=== PATIENT | female | born 1930 | race Caucasian/White ===

== ENCOUNTER 2016-12-19 08:56 | Outpatient (CLI) | payer MEDICARE, OTHER ==
[2016-12-19 13:02] LABS: BASOPHILS % (AUTO) 0.5 %; EOSINOPHILS # (AUTO) 0.1 10^3/uL (0.0-0.7); HCT - HEMATOCRIT 44.2 % (37.0-47.0); HGB - HEMOGLOBIN 14.8 g/dL (12.0-16.0); LYMPHOCYTES # (AUTO) 2.3 10^3/uL (1.5-3.5); LYMPHOCYTES % (AUTO) 31.8 %; MEAN CORPUSCULAR HEMOGLOBIN 28.8 pg (27.0-31.0); MEAN CORPUSCULAR HGB CONC 33.6 g/dL (32.0-36.0); MEAN CORPUSCULAR VOLUME 85.7 fL (81.0-99.0); MEAN PLATELET VOLUME 9.5 fL (7.9-10.8); MONOCYTES # (AUTO) 0.8 10^3/uL (0.0-1.0); MONOCYTES % (AUTO) 10.6 %; NEUTROPHILS % (AUTO) 55.1 %; NUCLEATED RED BLOOD CELLS AUTO 0.1 /100WBC; RED BLOOD COUNT 5.15 10^6/uL (4.20-5.40); RED CELL DISTRIBUTION WIDTH 13.7 % (12.0-15.0); UNCORRECTED WHITE BLOOD COUNT 7.2 x10^3/uL; WHITE BLOOD COUNT 7.2 x10^3/uL (4.8-10.8)
[2016-12-19 13:39] LABS: ALBUMIN/GLOBULIN RATIO 1.3 (1.0-2.2); BILIRUBIN,TOTAL 0.9 mg/dL (0.2-1.0); BUN - BLOOD UREA NITROGEN 23 mg/dL (6-20); CALCIUM 9.6 mg/dL (8.5-10.3); CARBON DIOXIDE - CO2 28 mmol/L (21-32); CHLORIDE 108 mmol/L (101-111); CHOL/HDL RATIO 3.7 (<4.4); CHOLESTEROL 159 mg/dL; CREATININE 1.3 mg/dL (0.4-1.0); GFR - MDRD 39 (>89); GLUCOSE 103 mg/dL (70-100); HDL CHOLESTEROL 43 mg/dL; LDL/HDL RATIO 1.8 (<4.4); POTASSIUM 4.7 mmol/L (3.5-5.0); SODIUM 142 mmol/L (135-145); TOTAL PROTEIN 7.6 g/dL (6.7-8.2); TRIGLYCERIDES 192 mg/dL; VLDL CHOLESTEROL 38 mg/dL
== END 2016-12-19 08:57 | disposition home or self-care (01) ==
LOC: LAB.N 08:56
PROVIDERS: ATTEND Family Medicine
DX: N28.9 Disorder of kidney and ureter, unspecified (principal)
CPT/HCPCS: 36415; 80053; 80061; 85025

== ENCOUNTER 2017-07-24 09:10 | Outpatient (CLI) | payer MEDICARE, OTHER ==
[2017-07-24 12:29] LABS: BASOPHILS # (AUTO) 0.1 10^3/uL (0.0-0.1); BASOPHILS % (AUTO) 0.8 %; EOSINOPHILS # (AUTO) 0.2 10^3/uL (0.0-0.7); EOSINOPHILS % (AUTO) 2.8 %; LYMPHOCYTES # (AUTO) 2.4 10^3/uL (1.5-3.5); LYMPHOCYTES % (AUTO) 33.5 %; MEAN CORPUSCULAR HEMOGLOBIN 28.7 pg (27.0-31.0); MEAN CORPUSCULAR HGB CONC 33.5 g/dL (32.0-36.0); MEAN CORPUSCULAR VOLUME 85.6 fL (81.0-99.0); MEAN PLATELET VOLUME 9.5 fL (7.9-10.8); MONOCYTES # (AUTO) 0.6 10^3/uL (0.0-1.0); MONOCYTES % (AUTO) 8.7 %; NEUTROPHILS # (AUTO) 3.9 10^3/uL (1.5-6.6); NEUTROPHILS % (AUTO) 54.2 %; PLT - PLATELET COUNT 182 10^3/uL (130-450); RED BLOOD COUNT 5.23 10^6/uL (4.20-5.40); RED CELL DISTRIBUTION WIDTH 13.7 % (12.0-15.0); WHITE BLOOD COUNT 7.2 x10^3/uL (4.8-10.8)
[2017-07-24 13:09] LABS: ALBUMIN 4.4 g/dL (3.2-5.5); ALBUMIN/GLOBULIN RATIO 1.4 (1.0-2.2); ALKALINE PHOSPHATASE 80 IU/L (42-121); ALT ALANINE AMINOTRANSFERASE 24 IU/L (10-60); AST ASPARTATE AMINOTRANSFERASE 22 IU/L (10-42); BILIRUBIN,TOTAL 0.7 mg/dL (0.2-1.0); BUN - BLOOD UREA NITROGEN 23 mg/dL (6-20); CALCIUM 9.3 mg/dL (8.5-10.3); CARBON DIOXIDE - CO2 25 mmol/L (21-32); CHLORIDE 109 mmol/L (101-111); CHOL/HDL RATIO 5.9 (<4.4); CHOLESTEROL 259 mg/dL; CREATININE 1.3 mg/dL (0.4-1.0); GFR - MDRD 39 (>89); GLUCOSE 106 mg/dL (70-100); HDL CHOLESTEROL 44 mg/dL; LDL CHOLESTEROL,CALCULATED 155 mg/dL; LDL/HDL RATIO 3.5 (<4.4); SODIUM 139 mmol/L (135-145); TOTAL PROTEIN 7.5 g/dL (6.7-8.2); VLDL CHOLESTEROL 60 mg/dL
== END 2017-07-24 09:11 | disposition home or self-care (01) ==
LOC: LAB.N 09:10
PROVIDERS: ATTEND Family Medicine
DX: E78.2 Mixed hyperlipidemia (principal); I10 Essential (primary) hypertension; I25.110 Atherosclerotic heart disease of native coronary artery with unstable angina pectoris
CPT/HCPCS: 36415; 80053; 80061; 85025

== ENCOUNTER 2017-07-30 14:09 | Outpatient (CLI) | payer MEDICARE, OTHER ==
--- NOTE | 2017-07-30 19:51 | Ultrasound Report ---
DATE OF SERVICE: 07/30/2017 LEFT BREAST ULTRASOUND: 07/30/2017 CLINICAL INDICATION: Palpable abnormalities medial and lateral left breast. TECHNIQUE: Real-time scanning was performed with insurance service representative static images obtained. Ultrasound of the palpable abnormalities identified by the patient was performed. Unremarkable parenchymal lobules are seen at the 9 o'clock and 3 o'clock positions of the left breast. No discrete solid or cystic lesion is identified. No sonographically suspicious findings are seen. IMPRESSION: Negative examination. RECOMMENDATIONS: Routine annual screening unless otherwise clinically indicated. BIRADS category 1 negative. TD: 07/30/2017 20:49
--- NOTE | 2017-07-30 19:51 | Mammography Report ---
DATE OF SERVICE: 07/30/2017 DIGITAL DIAGNOSTIC BILATERAL MAMMOGRAM: 07/30/2017 CLINICAL INDICATION: Palpable abnormalities left breast. TECHNIQUE: Bilateral CC and MLO views, left true lateral view. Markers were placed at the sites of palpable abnormalities identified by the patient at the 9 o'clock and 3 o'clock positions of the left breast. COMPARISON: 05/16/2009, 09/22/2008. The breasts demonstrate scattered fibroglandular densities bilaterally. Postoperative changes in the right breast are stable. Coarse, typically benign calcifications are present. No suspicious masses, clustered microcalcifications, or regions of architectural distortion are identified. Specifically, no mammographic abnormality is appreciated at either of the sites of palpable abnormalities identified by the patient. Please also refer to left breast ultrasound of the same day. IMPRESSION: Benign findings. RECOMMENDATIONS: Routine annual screening unless otherwise clinically indicated. BIRADS category 2 benign findings. STANDARD QUALIFYING STATEMENTS 1. This examination was reviewed with the aid of Computed-Aided Detection (CAD). 2. A negative or benign imaging report should not delay biopsy if clinically suspicious findings are present. Consider surgical consultation if warranted. More than 5% of cancers are not identified by imaging. 3. Dense breasts may obscure an underlying neoplasm. TD: 07/30/2017 20:49
== END 2017-07-30 14:10 | disposition home or self-care (01) ==
LOC: DI 14:09
PROVIDERS: ATTEND Family Medicine
DX: N63.22 Unspecified lump in the left breast, upper inner quadrant (principal)
CPT/HCPCS: 76642; 77066

== ENCOUNTER 2018-03-23 14:05 | Emergency (ER) | payer MEDICARE, OTHER ==
[2018-03-23 14:45] VITALS: BP 157/80
== END 2018-03-23 16:01 | disposition left against medical advice (07) ==
LOC: ED 14:05
DX: Z53.21 Procedure and treatment not carried out due to patient leaving prior to being seen by health care provider (principal)

== ENCOUNTER 2018-03-24 09:08 | Inpatient (IN) | payer MEDICARE, OTHER ==
[2018-03-24 10:06] LABS: BILIRUBIN,URINE NEGATIVE (NEGATIVE); GLUCOSE, URINE (UA) NEGATIVE (NEGATIVE); KETONES,URINE (UA) NEGATIVE (NEGATIVE); LEUKOCYTE ESTERASE, URINE NEGATIVE (NEGATIVE); NITRITE,URINE NEGATIVE (NEGATIVE); OCCULT BLOOD,URINE NEGATIVE (NEGATIVE); PH,URINE 5.5 PH (5.0-7.5); PROTEIN,URINE NEGATIVE (NEGATIVE); UROBILINOGEN,URINE 0.2 (NORMAL) E.U./dL (NORMAL)
[2018-03-24 10:07] LABS: CLARITY,URINE HAZY (CLEAR)
[2018-03-24 10:08] LABS: BASOPHILS # (AUTO) 0.1 10^3/uL (0.0-0.1); BASOPHILS % (AUTO) 0.6 %; EOSINOPHILS % (AUTO) 0.2 %; HGB - HEMOGLOBIN 14.6 g/dL (12.0-16.0); LYMPHOCYTES % (AUTO) 12.1 %; MEAN CORPUSCULAR HEMOGLOBIN 28.9 pg (27.0-31.0); MEAN CORPUSCULAR HGB CONC 34.3 g/dL (32.0-36.0); MEAN CORPUSCULAR VOLUME 84.2 fL (81.0-99.0); MEAN PLATELET VOLUME 9.4 fL (7.9-10.8); MONOCYTES # (AUTO) 0.9 10^3/uL (0.0-1.0); MONOCYTES % (AUTO) 5.6 %; NEUTROPHILS # (AUTO) 13.6 10^3/uL (1.5-6.6); NEUTROPHILS % (AUTO) 81.5 %; PLT - PLATELET COUNT 181 10^3/uL (130-450); RED BLOOD COUNT 5.07 10^6/uL (4.20-5.40); WHITE BLOOD COUNT 16.7 x10^3/uL (4.8-10.8)
--- NOTE | 2018-03-24 10:13 | ED Physician Documentation ---
PD HPI ABD PAIN - Stated complaint Stated Complaint: ABD PX - Chief complaint Chief Complaint: Abd Pain - History obtained from History obtained from: Patient - History of Present Illness Timing - onset: How many days ago (2-3) Timing - duration: Days (2-3) Timing - details: Gradual onset, Still present Quality: Cramping, Aching, Pain Location: RLQ, Suprapubic Improved by: No: Vomiting, BM (has had some loose stools.) Worsened by: Eating Associated symptoms: Nausea, Diarrhea. No: Fever, Vomiting, Melena, Dysuria Review of Systems Constitutional: reports: Chills, Myalgias. denies: Fever Nose: denies: Rhinorrhea / runny nose, Congestion Throat: denies: Sore throat Respiratory: denies: Cough GI: reports: Abdominal Pain, Nausea, Diarrhea (loose for 1-2 days). denies: Vomiting, Bloody / black stool : denies: Dysuria, Frequency Skin: denies: Rash, Lesions Neurologic: reports: Generalized weakness. denies: Focal weakness, Numbness PD PAST MEDICAL HISTORY - Past Medical History Cardiovascular: None Respiratory: None Neuro: None Endocrine/Autoimmune: None - Past Surgical History Past Surgical History: Yes Cardiovascular: CABG HEENT: Tonsil/Adenoidectomy - Present Medications Home Medications: Ambulatory Orders Medication Instructions Recorded Confirmed No Known Home Medications 04/25/15 04/25/15 - Allergies Allergies/Adverse Reactions: Allergies Allergy/AdvReac Type Severity Reaction Status Date / Time Penicillins Allergy Unknown Verified 03/24/18 09:22 - Living Situation Living Situation: reports: With spouse/s.o. Living Arrangement: reports: At home - Social History Does the pt smoke?: No Smoking Status: Never smoker Does the pt drink ETOH?: No Does the pt have substance abuse?: No PD ED PE NORMAL - Vitals Vital signs reviewed: Yes - General General: Alert and oriented X 3, Well developed/nourished - HEENT HEENT: Pharynx benign - Neck Neck: Supple, no meningeal sign, No adenopathy - Cardiac Cardiac: RRR, No murmur - Respiratory Respiratory: Clear bilaterally - Abdomen Abdomen: Normal bowel sounds, Soft, Non distended, No organomegaly, Other (very tender RLQ with guarding. No rebound, but some perucssion tender RLQ. ) - Female Female : Deferred - Rectal Rectal: Deferred - Back Back: No CVA TTP - Derm Derm: Normal color, Warm and dry - Extremities Extremities: No deformity, No tenderness to palpate, Normal ROM s pain, No edema, No calf tenderness / cord - Neuro Neuro: Alert and oriented X 3, No motor deficit, Normal speech Results - Vitals Vitals: Vital Signs - 24 hr 03/24/18 03/24/18 09:20 10:57 Temperature 36.8 C Heart Rate 111 H 94 Respiratory 20 18 Rate Blood Pressure 135/81 H 150/78 H O2 Saturation 98 96 Oxygen O2 Source Room air - Labs Labs: Laboratory Tests 03/24/18 03/24/18 03/24/18 09:45 09:48 09:48 WBC 16.7 H RBC 5.07 Hgb 14.6 Hct 42.7 MCV 84.2 MCH 28.9 MCHC 34.3 RDW 14.0 Plt Count 181 MPV 9.4 Neut # (Auto) 13.6 H Lymph # (Auto) 2.0 [place] # (Auto) 0.9 Eos # (Auto) 0.0 Baso # (Auto) 0.1 Absolute Nucleated RBC 0.03 Nucleated RBC % 0.2 Sodium 138 Potassium 4.3 Chloride 106 Carbon Dioxide 23 Anion Gap 9.0 BUN 25 H Creatinine 1.5 H Estimated GFR (MDRD) 33 L Glucose 123 H Calcium 9.3 Total Bilirubin 1.4 H AST 21 ALT 20 Alkaline Phosphatase 74 Total Protein 7.7 Albumin 4.0 Globulin 3.7 Albumin/Globulin Ratio 1.1 Lipase 31 Urine Color DARK YELLOW Urine Clarity HAZY Urine pH 5.5 Ur Specific [place] 1.020 Urine Protein NEGATIVE Urine Glucose (UA) NEGATIVE Urine Ketones NEGATIVE Urine Occult Blood NEGATIVE Urine Nitrite NEGATIVE Urine Bilirubin NEGATIVE Urine Urobilinogen 0.2 (NORMAL) Ur Leukocyte Esterase NEGATIVE Urine RBC 0-5 Urine WBC 0-3 Ur Squamous Epith Cells FEW Squamous Urine Bacteria Rare Ur Microscopic Review INDICATED Urine Culture Comments NOT INDICATED - Rads (name of study) abd CT Radiology: Prelim report reviewed (stranding and inflammation along sigmoid area with diverticula. Favors diverticulitis. ) PD MEDICAL DECISION MAKING - ED course Complexity details: reviewed results, re-evaluated patient (pain improved but still very tender RLQ area. No general peritoneal signs. ), considered differential (diverticulitis vs appy vs UTI, etc.), d/w patient - Sepsis Event Vital Signs: Vital Signs - 24 hr 03/24/18 03/24/18 09:20 10:57 Temperature 36.8 C Heart Rate 111 H 94 Respiratory 20 18 Rate Blood Pressure 135/81 H 150/78 H O2 Saturation 98 96 Oxygen O2 Source Room air Departure - Departure Disposition: 66 [facility] DC/Xfer Clinical Impression: Diverticulitis of gastrointestinal tract Abdominal pain Qualifiers: Abdominal location: right lower quadrant Qualified Code(s): R10.31 - Right lower quadrant pain Condition: Stable Record reviewed to determine appropriate education?: Yes
[2018-03-24 10:23] LABS: BACTERIA,URINE Rare /HPF (None Seen); RBC,URINE 0-5 /HPF (0-5); SQUAMOUS EPITHELIAL CELL,UR FEW Squamous (<= Few)
[2018-03-24 10:23] LABS: ALBUMIN/GLOBULIN RATIO 1.1 (1.0-2.2); BILIRUBIN,TOTAL 1.4 mg/dL (0.2-1.0); CALCIUM 9.3 mg/dL (8.5-10.3); CREATININE 1.5 mg/dL (0.4-1.0); TOTAL PROTEIN 7.7 g/dL (6.7-8.2)
[2018-03-24] MEDS ORDERED: SODIUM CHLORIDE 0.9% 1,000 ML IV ONE (10:38)
[2018-03-24] MEDS ORDERED: ONDANSETRON 4 MG/2 ML VIAL IVP STA (10:38)
[2018-03-24] MEDS ORDERED: MORPHINE 10 MG/ML VIAL IVP STA (10:38)
[2018-03-24] MEDS ORDERED: cefTRIAXone 1 GM in SODIUM CHLORIDE 0.9% MINIBAG 100 ML IV STA (11:28)
[2018-03-24] MEDS ORDERED: metroNIDAZOLE 500 MG/100 ML 500 MG/100 ML BAG IV ONE (11:29)
--- NOTE | 2018-03-24 11:34 | CT Report ---
Reason: RLQ pain for 2-3 days; elevated white count Procedure Date: 03/24/2018 Accession Number: [id number] / [id number] Procedure: CT - Abdomen/Pelvis W/O CPT Code: FULL RESULT: EXAM: CT ABDOMEN AND PELVIS EXAM DATE: 03/24/2018 10:53 AM. CLINICAL HISTORY: RLQ pain for 2-3 days; elevated white count. COMPARISONS: None. TECHNIQUE: Routine helical CT imaging was performed through the abdomen and pelvis. IV contrast: . Enteric contrast: No. Reconstructions: Coronal and sagittal. In accordance with CT protocol optimization, one or more of the following dose reduction techniques were utilized for this exam: automated exposure control, adjustment of mA and/or KV based on patient size, or use of iterative reconstructive technique. FINDINGS: Lung Bases: There is a 2 mm solid nodule of the right middle lobe series 3 image 4. Sternotomy is noted. Liver: 1.2 cm mid hepatic lesion measures 18 HU, likely a cyst. Gallbladder/Bile Ducts: Cholecystectomy is noted. Spleen: Normal. Pancreas: Normal. Adrenal Glands: Normal. Kidneys: Normal. No masses or hydronephrosis. Peritoneal Cavity/Bowel: No free fluid, free air or adenopathy. No masses. There is a small amount of fat stranding adjacent to the sigmoid colon. There are several diverticula. Pelvic Organs: The bladder and visualized pelvic organs appear within normal limits. Vasculature: No aneurysms or other significant abnormality. Bones: No bone lesions. IMPRESSION: Favor diverticulitis in the correct clinical setting. No complicating features. 2 mm right middle lobe nodule. In a low risk patient no further follow-up is required. In a high risk patient, may consider follow-up CT at 12 months. RADIA
[2018-03-24] MEDS ORDERED: SODIUM CHLORIDE FLUSH 0.9% 10 ML SYRINGE IVP PRN (18:26)
[2018-03-24] MEDS ORDERED: ACETAMINOPHEN 325 MG TABLET PO PRN (18:26)
[2018-03-24] MEDS ORDERED: HYDROmorphone 0.5 MG/0.5 ML SYRINGE IVP PRN (18:26)
[2018-03-24] MEDS ORDERED: ONDANSETRON 4 MG/2 ML VIAL IVP PRN (18:26)
[2018-03-24] MEDS: D5.45NS W/20 MEQ KCL 1,000 ML IV SCH (19:57)
[2018-03-24] MEDS: metroNIDAZOLE 500 MG/100 ML 500 MG/100 ML BAG IV SCH (19:57)
[2018-03-24] MEDS: FAMOTIDINE 20 MG TABLET PO SCH (20:03)
[2018-03-25] MEDS: SODIUM CHLORIDE FLUSH 0.9% 10 ML SYRINGE IVP SCH ×3 (00:21→15:41)
--- NOTE | 2018-03-25 01:15 | HISTORY & PHYSICAL EXAMINATION ---
DATE OF SERVICE: 03/24/2018 Physician: Mireille Hanh MD HISTORY OF PRESENT ILLNESS: This is an 87-year-old, white female with history of hypertension, on lisinopril and she takes a daily aspirin. She denies any other significant past medical history. Patient presents with 2-3 days of lower abdominal cramping pain, in the right lower quadrant and left lower quadrant with loose stools. She continued to eat her normal solid diet throughout this time, and had no nausea and vomiting. She finally got "sick of having loose stools and abdominal pain," and came to the emergency room. Imaging ordered in the ER has shown that she has acute diverticulitis and she is being admitted for this. PAST MEDICAL HISTORY: Hypertension. FAMILY HISTORY: Heart disease in several siblings and her father. MEDICATIONS 1. Lisinopril. 2. Aspirin daily. ALLERGIES: PENICILLIN. SOCIAL HISTORY: The patient is a nonsmoker, who never smoked, drinks no alcohol, uses no illicit drugs. She lives with her and they have been for 67 years. She is active around the house and they have an orchard. REVIEW OF SYSTEMS: A comprehensive review of systems was performed and the pertinent positives are in the HPI, the rest are negative. PHYSICAL EXAMINATION GENERAL: White female who appears younger than her age. She is in no distress. VITAL SIGNS: Blood pressure 135/80, heart rate 111 in sinus tachycardia, afebrile, room air saturation 98%. HEENT: Unremarkable, except dry oral mucosa. NECK: Without JVD in a supine position. No carotid bruits. CHEST: Clear. HEART: Sounds normal. No murmur. No gallop. ABDOMEN: Soft with decreased bowel sounds. Tender to light palpation in the left lower quadrant and right lower quadrant. No guarding or rebound. No masses. No organomegaly. EXTREMITIES: No clubbing, cyanosis, edema. NEUROLOGIC: Intact. LABORATORIES: Normal electrolytes, BUN 25, creatinine 1.5. Normal liver tests, bilirubin 1.4. White blood count 60.7 with a left shift, hemoglobin 14.6, platelet count normal. Urinalysis unremarkable. No INR was done. No EKG was done. Abdomen and pelvis CT showed diverticulitis without any complicating features and there is a right middle lobe nodule in the chest. A full CT chest is advised to be done in the future. IMPRESSION/DIAGNOSES 1. Acute diverticulitis with abdominal pain, loose stools, elevated white count with left shift. 2. History of hypertension. 3. Dehydration with elevation of BUN and creatinine, likely secondary to her diarrhea. PLAN: Admit the patient. Begin bowel rest, only water orally and then advance to clear liquids. Advance the diet as tolerated. Begin IV Flagyl and IV ceftriaxone for treatment of the diverticulitis. Treat her abdominal pain symptoms if needed. Hold the Lisinopril if she has BP < 100, during dehydration. CODE STATUS: FULL CODE. DEEP VENOUS THROMBOSIS PROPHYLAXIS: SCDs. ATTESTATION: The patient is expected to be discharged or transferred to another facility within 96 hours: Yes. TD: 03/24/2018 20:16 MTDUrmila
[2018-03-25] MEDS: metroNIDAZOLE 500 MG/100 ML 500 MG/100 ML BAG IV SCH ×3 (04:05→20:53)
[2018-03-25 07:24] LABS: BASOPHILS # (AUTO) 0.1 10^3/uL (0.0-0.1); BASOPHILS % (AUTO) 1.1 %; EOSINOPHILS # (AUTO) 0.1 10^3/uL (0.0-0.7); EOSINOPHILS % (AUTO) 0.6 %; HGB - HEMOGLOBIN 12.7 g/dL (12.0-16.0); LYMPHOCYTES % (AUTO) 11.8 %; MEAN CORPUSCULAR HEMOGLOBIN 29.4 pg (27.0-31.0); MEAN CORPUSCULAR HGB CONC 34.4 g/dL (32.0-36.0); MEAN CORPUSCULAR VOLUME 85.3 fL (81.0-99.0); MEAN PLATELET VOLUME 8.7 fL (7.9-10.8); MONOCYTES # (AUTO) 0.7 10^3/uL (0.0-1.0); MONOCYTES % (AUTO) 7.6 %; NEUTROPHILS # (AUTO) 6.9 10^3/uL (1.5-6.6); NEUTROPHILS % (AUTO) 78.9 %; PLT - PLATELET COUNT 130 10^3/uL (130-450); RED BLOOD COUNT 4.33 10^6/uL (4.20-5.40); RED CELL DISTRIBUTION WIDTH 14.2 % (12.0-15.0); WHITE BLOOD COUNT 8.8 x10^3/uL (4.8-10.8)
[2018-03-25 07:32] LABS: CALCIUM 8.1 mg/dL (8.5-10.3); CREATININE 1.4 mg/dL (0.4-1.0)
[2018-03-25] MEDS: LISINOPRIL 20 MG TABLET PO SCH (08:29)
[2018-03-25] MEDS: FAMOTIDINE 20 MG TABLET PO SCH ×2 (08:29→20:03)
[2018-03-25] MEDS: POLYETHYLENE GLYCOL 3350 17 GM PACKET PO SCH (08:29)
[2018-03-25] MEDS: D5.45NS W/20 MEQ KCL 1,000 ML IV SCH (09:35)
[2018-03-25] MEDS: cefTRIAXone 1 GM in SODIUM CHLORIDE 0.9% MINIBAG 100 ML IV SCH (10:43)
--- NOTE | 2018-03-25 19:04 | PROVIDER PROGRESS NOTE ---
Assessment/Plan - Problem List (1) Diverticulitis of gastrointestinal tract Assessment/Plan: Pt has more gas and has not had a BM or diarrhea since admission. Will start bowel protocol. Watch for fever or worsening WBC or sx, to recheck abd imaging or draw blood cultures. Continue bowel rest and therefore only clear liquids. Continue iv fluids. Continue iv antibiotics. The son reports that diverticulosis runs in the family and that pt had a bad attack 30 years ago, which the patient can vaguely remember now, she says. (2) HTN (hypertension) Assessment/Plan: Adequate control on her home med of Lisinopril 20 mg daily. Watch creat on this RISHABH-I treatment. (3) JESSICA (acute kidney injury) Assessment/Plan: Continue iv hydration. Monitor BMP daily. (4) Poor memory Assessment/Plan: Pt admitted to this and son confirmed this. Continue supportive care, provide clues, watch for "Sundowning". - Current Meds Current Meds: Current Medications Generic Name Dose Route Start Last Admin Trade Name Suyapa PRN Reason Stop Dose Admin Famotidine 20 mg 03/24/18 21:00 03/25/18 08:29 Pepcid PO 20 mg BID IVORY Administration Ceftriaxone Sodium 1 gm/ 100 mls @ 200 mls/hr 03/25/18 11:00 03/25/18 11:13 Sodium Chloride IV Infused Q24H IVORY Infusion Metronidazole 500 mg in 100 mls @ 100 mls/hr 03/24/18 20:00 03/25/18 12:26 Flagyl 500 Mg/100 Ml IV Infused Q8H IVORY Infusion Potassium Chloride/Dextrose/Sod Cl 1,000 mls @ 80 mls/hr 03/24/18 19:00 03/25/18 09:35 D5.45ns W/20 Meq Kcl IV 80 mls/hr .[id number] IVORY Administration Lisinopril 20 mg 03/25/18 09:00 03/25/18 08:29 Zestril PO 20 mg DAILY IVORY Administration Polyethylene Glycol 17 gm 03/25/18 09:00 03/25/18 08:29 Miralax PO Not Given DAILY IVORY Sodium Chloride 10 ml 03/25/18 01:00 03/25/18 15:41 Normal Saline Flush 0.9% IVP Not Given 0100,0900,1700 IVORY - Lab Result Fish Bone Diagrams: 03/26/18 05:15 03/26/18 05:15 - Additional Planning My Orders: My Active Orders 03/24/18 18:26 Activity Orders [RC] Routine IO [RC] IOSHIFT Initiate Bowel Care Protocol [RC] .protocol Initiate Line Care Protocol [RC] .protocol Initiate Line Care Protocol [RC] QSHIFT Initiate Personal Care Protoco [RC] .protocol Oxygen Therapy [RC] Routine Vital Signs [RC] 0800,1600,0000 Acetaminophen [Tylenol] 650 mg PO Q4HR PRN HYDROmorphone INJ SYRINGE [Dilaudid Inj Syringe] 0.5 mg IVP Q2H PRN Ondansetron Inj [Zofran Inj] 4 mg IVP Q6HR PRN Sodium Chloride Flush 0.9% [Normal Saline Flush 0.9%] 10 ml IVP PRN PRN Code Status [OTHERS] Routine Condition of Patient [OTHERS] Routine DVT Prophylaxis [OTHERS] Routine 03/24/18 18:27 IV Insert [RC] .ONCE 03/24/18 18:28 SCDs [RC] QSHIFT 03/24/18 19:00 D5.45ns W/20 Meq KCl 1,000 ml IV 80 mls/hr 03/24/18 20:00 metroNIDAZOLE 500 MG/100 ML [Flagyl 500 mg/100 ml] 500 mg in 100 ml IV Q8H 03/24/18 21:00 Famotidine [Pepcid] 20 mg PO BID 03/25/18 01:00 Sodium Chloride Flush 0.9% [Normal Saline Flush 0.9%] 10 ml IVP 0100,0900,1700 03/25/18 09:00 Lisinopril [Zestril] 20 mg PO DAILY Polyethylene Glycol 3350 [Miralax] 17 gm PO DAILY 03/25/18 11:00 cefTRIAXone [Rocephin] 1 gm Sodium Chloride 0.9% Minibag [Normal Saline 0.9% Minibag] 100 ml IV Q24H 03/25/18 20:00 Docusate Sodium 250Mg Capsule [Colace 250Mg Capsule] 500 mg PO ONCE Senna [Senokot] 8.6 mg PO ONCE Subjective - Subjective Patient Reports: Feeling Better, Other (mill tender washing to touch abdomen. admits that she is forgetful and sonMarcus, in room, confirms that.) Nursing Reports: Other (No BM in 2 ddays) Objective Vital Signs: Vital Signs - 24 hr 03/25/18 03/25/18 03/25/18 00:26 07:37 10:35 Temperature 37.3 C 37.1 C 37.1 C Heart Rate 76 Heart Rate [ 88 76 Brachial] Respiratory 16 20 16 Rate Blood Pressure 141/65 H [Left Brachial artery] Blood Pressure 137/67 H [Right Brachial artery] O2 Saturation 93 95 100 03/25/18 16:15 Temperature 37.5 C Heart Rate Heart Rate [ 83 Brachial] Respiratory 20 Rate Blood Pressure 129/64 [Left Brachial artery] Blood Pressure [Right Brachial artery] O2 Saturation 97 Oxygen O2 Source Room air I&O (Last 24 Hrs): Intake and Output Totals x24h 03/23/18 03/24/18 03/25/18 23:59 23:59 23:59 Intake Total 1600 3910 Output Total 150 Balance 1600 3760 General: Alert HEENT: Mucous membr. moist/pink Neck: Supple, No JVD Neuro: Non Focal Cardiovascular: Regular rate, No murmurs Respiratory: No respiratory distress, Breath sounds nml Abdomen: Other (Distended, hypertympanic, more tender throughout, no guarding or rebound) Extremities: No edema - Results Results: Laboratory Results WBC 8.8 x10^3/uL (4.8-10.8) 03/25/18 07:15 RBC 4.33 10^6/uL (4.20-5.40) 03/25/18 07:15 Hgb 12.7 g/dL (12.0-16.0) 03/25/18 07:15 Hct 36.9 % (37.0-47.0) L 03/25/18 07:15 MCV 85.3 fL (81.0-99.0) 03/25/18 07:15 MCH 29.4 pg (27.0-31.0) 03/25/18 07:15 MCHC 34.4 g/dL (32.0-36.0) 03/25/18 07:15 RDW 14.2 % (12.0-15.0) 03/25/18 07:15 Plt Count 130 10^3/uL (130-450) 03/25/18 07:15 MPV 8.7 fL (7.9-10.8) 03/25/18 07:15 Neut # (Auto) 6.9 10^3/uL (1.5-6.6) H 03/25/18 07:15 Lymph # (Auto) 1.0 10^3/uL (1.5-3.5) L 03/25/18 07:15 [place] # (Auto) 0.7 10^3/uL (0.0-1.0) 03/25/18 07:15 Eos # (Auto) 0.1 10^3/uL (0.0-0.7) 03/25/18 07:15 Baso # (Auto) 0.1 10^3/uL (0.0-0.1) 03/25/18 07:15 Absolute Nucleated RBC 0.00 x10^3/uL 03/25/18 07:15 Nucleated RBC % 0.0 /100WBC 03/25/18 07:15 Sodium 137 mmol/L (135-145) 03/25/18 07:15 Potassium 4.1 mmol/L (3.5-5.0) 03/25/18 07:15 Chloride 106 mmol/L (101-111) 03/25/18 07:15 Carbon Dioxide 24 mmol/L (21-32) 03/25/18 07:15 Anion Gap 7.0 (6-13) 03/25/18 07:15 BUN 17 mg/dL (6-20) 03/25/18 07:15 Creatinine 1.4 mg/dL (0.4-1.0) H 03/25/18 07:15 Estimated GFR (MDRD) 36 (>89) L 03/25/18 07:15 Glucose 127 mg/dL (70-100) H 03/25/18 07:15 Calcium 8.1 mg/dL (8.5-10.3) L 03/25/18 07:15 Total Bilirubin 1.4 mg/dL (0.2-1.0) H 03/24/18 09:48 AST 21 IU/L (10-42) 03/24/18 09:48 ALT 20 IU/L (10-60) 03/24/18 09:48 Alkaline Phosphatase 74 IU/L (42-121) 03/24/18 09:48 Total Protein 7.7 g/dL (6.7-8.2) 03/24/18 09:48 Albumin 4.0 g/dL (3.2-5.5) 03/24/18 09:48 Globulin 3.7 g/dL (2.1-4.2) 03/24/18 09:48 Albumin/Globulin Ratio 1.1 (1.0-2.2) 03/24/18 09:48 Lipase 31 U/L (22-51) 03/24/18 09:48 Urine Color DARK YELLOW 03/24/18 09:45 Urine Clarity HAZY (CLEAR) 03/24/18 09:45 Urine pH 5.5 PH (5.0-7.5) 03/24/18 09:45 Ur Specific [place] 1.020 (1.002-1.030) 03/24/18 09:45 Urine Protein NEGATIVE mg/dL (NEGATIVE) 03/24/18 09:45 Urine Glucose (UA) NEGATIVE mg/dL (NEGATIVE) 03/24/18 09:45 Urine Ketones NEGATIVE mg/dL (NEGATIVE) 03/24/18 09:45 Urine Occult Blood NEGATIVE (NEGATIVE) 03/24/18 09:45 Urine Nitrite NEGATIVE (NEGATIVE) 03/24/18 09:45 Urine Bilirubin NEGATIVE (NEGATIVE) 03/24/18 09:45 Urine Urobilinogen 0.2 (NORMAL) E.U./dL (NORMAL) 03/24/18 09:45 Ur Leukocyte Esterase NEGATIVE (NEGATIVE) 03/24/18 09:45 Urine RBC 0-5 /HPF (0-5) 03/24/18 09:45 Urine WBC 0-3 /HPF (0-5) 03/24/18 09:45 Ur Squamous Epith Cells FEW Squamous (<= Few) 03/24/18 09:45 Urine Bacteria Rare /HPF (None Seen) 03/24/18 09:45 Ur Microscopic Review INDICATED 03/24/18 09:45 Urine Culture Comments NOT INDICATED 03/24/18 09:45 ABX Reporting Has patient been on IV antibiotics over the past 48 hours?: Yes
[2018-03-25] MEDS ORDERED: SENNA 8.6 MG TABLET PO SCH (20:00)
[2018-03-25] MEDS ORDERED: DOCUSATE SODIUM 250 MG CAPSULE PO SCH (20:00)
[2018-03-26] MEDS: SODIUM CHLORIDE FLUSH 0.9% 10 ML SYRINGE IVP SCH ×3 (00:39→17:27)
[2018-03-26] MEDS: metroNIDAZOLE 500 MG/100 ML 500 MG/100 ML BAG IV SCH ×3 (04:13→19:51)
[2018-03-26] MEDS: D5.45NS W/20 MEQ KCL 1,000 ML IV SCH ×2 (04:14→19:51)
[2018-03-26 05:56] LABS: BASOPHILS % (AUTO) 0.4 %; EOSINOPHILS # (AUTO) 0.1 10^3/uL (0.0-0.7); EOSINOPHILS % (AUTO) 0.8 %; HGB - HEMOGLOBIN 12.8 g/dL (12.0-16.0); LYMPHOCYTES # (AUTO) 1.2 10^3/uL (1.5-3.5); LYMPHOCYTES % (AUTO) 14.3 %; MEAN CORPUSCULAR HEMOGLOBIN 29.2 pg (27.0-31.0); MEAN CORPUSCULAR HGB CONC 34.1 g/dL (32.0-36.0); MEAN CORPUSCULAR VOLUME 85.7 fL (81.0-99.0); MEAN PLATELET VOLUME 9.1 fL (7.9-10.8); MONOCYTES # (AUTO) 0.8 10^3/uL (0.0-1.0); MONOCYTES % (AUTO) 9.2 %; NEUTROPHILS # (AUTO) 6.2 10^3/uL (1.5-6.6); NEUTROPHILS % (AUTO) 75.3 %; PLT - PLATELET COUNT 137 10^3/uL (130-450); RED BLOOD COUNT 4.39 10^6/uL (4.20-5.40); RED CELL DISTRIBUTION WIDTH 13.9 % (12.0-15.0); WHITE BLOOD COUNT 8.2 x10^3/uL (4.8-10.8)
[2018-03-26 06:07] LABS: CREATININE 1.2 mg/dL (0.4-1.0)
[2018-03-26] MEDS: LISINOPRIL 20 MG TABLET PO SCH (08:06)
[2018-03-26] MEDS: FAMOTIDINE 20 MG TABLET PO SCH ×2 (08:06→20:04)
[2018-03-26] MEDS: POLYETHYLENE GLYCOL 3350 17 GM PACKET PO SCH (08:06)
[2018-03-26] MEDS: cefTRIAXone 1 GM in SODIUM CHLORIDE 0.9% MINIBAG 100 ML IV SCH (11:31)
--- NOTE | 2018-03-26 13:05 | PROVIDER PROGRESS NOTE ---
Assessment/Plan - Problem List (1) Diverticulitis of gastrointestinal tract Assessment/Plan: Improvement in symptoms with less abdominal pain, no tenderness or hypertympany and she had a BM. Will advance diet. Continue antibiotics and iv fluids. (2) HTN (hypertension) Assessment/Plan: Controlled on Lisinopril. (3) JESSICA (acute kidney injury) Assessment/Plan: Slowly improving creatinine daily. It is likely due to volume depletion from diarrhea before admission. Continue iv fluids. Continue daily BMP labs draws. (4) Sundowning Assessment/Plan: At about midnight, last night the patient pulled out her iv and was standing in her doorway and told the nurse she was in a hotel. The description of last nights events suggest she was Sundowning. She cannot remember it at all. Will use scheduled [id number] mg po iin pm. - Current Meds Current Meds: Current Medications Generic Name Dose Route Start Last Admin Trade Name Freq PRN Reason Stop Dose Admin Famotidine 20 mg 03/24/18 21:00 03/26/18 08:06 Pepcid PO 20 mg BID IVORY Administration Ceftriaxone Sodium 1 gm/ 100 mls @ 200 mls/hr 03/25/18 11:00 03/26/18 11:31 Sodium Chloride IV 200 mls/hr Q24H IVORY Administration Metronidazole 500 mg in 100 mls @ 100 mls/hr 03/24/18 20:00 03/26/18 06:00 Flagyl 500 Mg/100 Ml IV Infused Q8H IVORY Infusion Potassium Chloride/Dextrose/Sod Cl 1,000 mls @ 80 mls/hr 03/24/18 19:00 03/26/18 11:45 D5.45ns W/20 Meq Kcl IV 0 mls/hr .[id number] IVORY Infusion Lisinopril 20 mg 03/25/18 09:00 03/26/18 08:06 Zestril PO 20 mg DAILY IVORY Administration Polyethylene Glycol 17 gm 03/25/18 09:00 03/26/18 08:06 Miralax PO Not Given DAILY IVORY Sodium Chloride 10 ml 03/25/18 01:00 03/26/18 08:07 Normal Saline Flush 0.9% IVP Not Given 0100,0900,1700 IVORY - Lab Result Fish Bone Diagrams: 03/26/18 05:15 03/26/18 05:15 - Additional Planning My Orders: My Active Orders 03/26/18 21:00 QUEtiapine [SEROquel] 25 mg PO QPM 03/26/18 Lunch DIET [Soft (Low Fiber) Diet] [DIET] Subjective - Subjective Patient Reports: Feeling Better, Other (Had semi-formed BM this am) Objective Vital Signs: Vital Signs - 24 hr 03/25/18 03/26/18 03/26/18 16:15 00:13 01:43 Temperature 37.5 C 37.6 C H 36.8 C Heart Rate [ 83 95 Brachial] Respiratory 20 18 Rate Blood Pressure 129/64 [Left Brachial artery] Blood Pressure 155/78 H [Right Brachial artery] O2 Saturation 97 94 03/26/18 07:25 Temperature 36.9 C Heart Rate [ 82 Brachial] Respiratory 18 Rate Blood Pressure [Left Brachial artery] Blood Pressure 134/81 H [Right Brachial artery] O2 Saturation 94 Oxygen O2 Source Room air I&O (Last 24 Hrs): Intake and Output Totals x24h 03/24/18 03/25/18 03/26/18 23:59 23:59 23:59 Intake Total 1600 5296.667 1854.666 Output Total 570 Balance 1600 4726.667 1854.666 General: Alert HEENT: Mucous membr. moist/pink Neck: Supple, No JVD Neuro: Non Focal, Other Cardiovascular: Regular rate, No murmurs Respiratory: No respiratory distress, Breath sounds nml Abdomen: Normal bowel sounds, Soft, No tenderness Extremities: No edema - Results Results: Laboratory Results WBC 8.2 x10^3/uL (4.8-10.8) 03/26/18 05:15 RBC 4.39 10^6/uL (4.20-5.40) 03/26/18 05:15 Hgb 12.8 g/dL (12.0-16.0) 03/26/18 05:15 Hct 37.6 % (37.0-47.0) 03/26/18 05:15 MCV 85.7 fL (81.0-99.0) 03/26/18 05:15 MCH 29.2 pg (27.0-31.0) 03/26/18 05:15 MCHC 34.1 g/dL (32.0-36.0) 03/26/18 05:15 RDW 13.9 % (12.0-15.0) 03/26/18 05:15 Plt Count 137 10^3/uL (130-450) 03/26/18 05:15 MPV 9.1 fL (7.9-10.8) 03/26/18 05:15 Neut # (Auto) 6.2 10^3/uL (1.5-6.6) 03/26/18 05:15 Lymph # (Auto) 1.2 10^3/uL (1.5-3.5) L 03/26/18 05:15 [place] # (Auto) 0.8 10^3/uL (0.0-1.0) 03/26/18 05:15 Eos # (Auto) 0.1 10^3/uL (0.0-0.7) 03/26/18 05:15 Baso # (Auto) 0.0 10^3/uL (0.0-0.1) 03/26/18 05:15 Absolute Nucleated RBC 0.01 x10^3/uL 03/26/18 05:15 Nucleated RBC % 0.1 /100WBC 03/26/18 05:15 Sodium 139 mmol/L (135-145) 03/26/18 05:15 Potassium 3.8 mmol/L (3.5-5.0) 03/26/18 05:15 Chloride 110 mmol/L (101-111) 03/26/18 05:15 Carbon Dioxide 23 mmol/L (21-32) 03/26/18 05:15 Anion Gap 6.0 (6-13) 03/26/18 05:15 BUN 10 mg/dL (6-20) 03/26/18 05:15 Creatinine 1.2 mg/dL (0.4-1.0) H 03/26/18 05:15 Estimated GFR (MDRD) 43 (>89) L 03/26/18 05:15 Glucose 117 mg/dL (70-100) H 03/26/18 05:15 Calcium 8.0 mg/dL (8.5-10.3) L 03/26/18 05:15 Total Bilirubin 1.4 mg/dL (0.2-1.0) H 03/24/18 09:48 AST 21 IU/L (10-42) 03/24/18 09:48 ALT 20 IU/L (10-60) 03/24/18 09:48 Alkaline Phosphatase 74 IU/L (42-121) 03/24/18 09:48 Total Protein 7.7 g/dL (6.7-8.2) 03/24/18 09:48 Albumin 4.0 g/dL (3.2-5.5) 03/24/18 09:48 Globulin 3.7 g/dL (2.1-4.2) 03/24/18 09:48 Albumin/Globulin Ratio 1.1 (1.0-2.2) 03/24/18 09:48 Lipase 31 U/L (22-51) 03/24/18 09:48 Urine Color DARK YELLOW 03/24/18 09:45 Urine Clarity HAZY (CLEAR) 03/24/18 09:45 Urine pH 5.5 PH (5.0-7.5) 03/24/18 09:45 Ur Specific [place] 1.020 (1.002-1.030) 03/24/18 09:45 Urine Protein NEGATIVE mg/dL (NEGATIVE) 03/24/18 09:45 Urine Glucose (UA) NEGATIVE mg/dL (NEGATIVE) 03/24/18 09:45 Urine Ketones NEGATIVE mg/dL (NEGATIVE) 03/24/18 09:45 Urine Occult Blood NEGATIVE (NEGATIVE) 03/24/18 09:45 Urine Nitrite NEGATIVE (NEGATIVE) 03/24/18 09:45 Urine Bilirubin NEGATIVE (NEGATIVE) 03/24/18 09:45 Urine Urobilinogen 0.2 (NORMAL) E.U./dL (NORMAL) 03/24/18 09:45 Ur Leukocyte Esterase NEGATIVE (NEGATIVE) 03/24/18 09:45 Urine RBC 0-5 /HPF (0-5) 03/24/18 09:45 Urine WBC 0-3 /HPF (0-5) 03/24/18 09:45 Ur Squamous Epith Cells FEW Squamous (<= Few) 03/24/18 09:45 Urine Bacteria Rare /HPF (None Seen) 03/24/18 09:45 Ur Microscopic Review INDICATED 03/24/18 09:45 Urine Culture Comments NOT INDICATED 03/24/18 09:45
[2018-03-26] MEDS ORDERED: QUEtiapine 25 MG TABLET PO SCH (21:00)
[2018-03-27] MEDS: D5.45NS W/20 MEQ KCL 1,000 ML IV SCH (01:00)
[2018-03-27] MEDS: SODIUM CHLORIDE FLUSH 0.9% 10 ML SYRINGE IVP SCH (03:35)
[2018-03-27] MEDS ORDERED: metroNIDAZOLE 250 MG TABLET PO SCH ×2 (04:00→10:00)
[2018-03-27] MEDS: LISINOPRIL 20 MG TABLET PO SCH (04:57)
[2018-03-27 06:39] LABS: BASOPHILS # (AUTO) 0.1 10^3/uL (0.0-0.1); BASOPHILS % (AUTO) 1.1 %; EOSINOPHILS # (AUTO) 0.2 10^3/uL (0.0-0.7); EOSINOPHILS % (AUTO) 3.3 %; LYMPHOCYTES # (AUTO) 0.9 10^3/uL (1.5-3.5); LYMPHOCYTES % (AUTO) 15.3 %; MEAN CORPUSCULAR HEMOGLOBIN 29.1 pg (27.0-31.0); MEAN CORPUSCULAR HGB CONC 34.4 g/dL (32.0-36.0); MEAN CORPUSCULAR VOLUME 84.6 fL (81.0-99.0); MEAN PLATELET VOLUME 8.6 fL (7.9-10.8); MONOCYTES # (AUTO) 0.7 10^3/uL (0.0-1.0); MONOCYTES % (AUTO) 12.6 %; NEUTROPHILS # (AUTO) 3.9 10^3/uL (1.5-6.6); NEUTROPHILS % (AUTO) 67.7 %; PLT - PLATELET COUNT 156 10^3/uL (130-450); RED BLOOD COUNT 4.14 10^6/uL (4.20-5.40); RED CELL DISTRIBUTION WIDTH 13.8 % (12.0-15.0); WHITE BLOOD COUNT 5.8 x10^3/uL (4.8-10.8)
[2018-03-27 06:45] LABS: CREATININE 1.2 mg/dL (0.4-1.0)
[2018-03-27] MEDS ORDERED: D5.45NS W/20 MEQ KCL 1,000 ML IV SCH (08:44)
[2018-03-27] MEDS ORDERED: POTASSIUM CHLOR 10 MEQ/100 ML 10 MEQ/100 ML BAG IV SCH (09:00)
[2018-03-27] MEDS ORDERED: POTASSIUM CHLORIDE 20 MEQ TABLET PO SCH (09:17)
[2018-03-27] MEDS ORDERED: CIPROFLOXACIN 250 MG TABLET PO SCH (10:00)
[2018-03-27] MEDS: FAMOTIDINE 20 MG TABLET PO SCH (10:09)
[2018-03-27] MEDS: POLYETHYLENE GLYCOL 3350 17 GM PACKET PO SCH (10:09)
--- NOTE | 2018-03-27 15:33 | Discharge Plan ---
Discharge Plan Disposition: 01 Home, Self Care Condition: Stable Prescriptions: Ciprofloxacin [Cipro] 250 mg PO BID #7 tablet metroNIDAZOLE [Flagyl] 500 mg PO TID #20 tablet Saccharomyces Boulardii [Florastor] 250 mg PO BID #8 capsule Diet: Regular Activity Restrictions: Activity as Tolerated Shower Restrictions: No Instruction Topics: Diverticulosis Diverticulitis, Diverticulitis Dc Additional Instructions or Follow Up instructions: Resume your usual Lisinopril and aspirin dosing. Take the antibiotics (Cipro and Flagyl) until they are done. Use the Florastor tablets to replenish healthy bowel vicente, or drink a 4-6 oz of Kefir (from a grocery store) daily for a week. Eat food that is easily digestible (broth, bread, rice, applesauce) for about a week. If you have diarrhea, stay well hydrated. If you re-experience abdominal pain, take Tylenol. See your doctor in 7-10 days in follow up. Return to the ER for new or worsening symptoms. No Smoking: If you smoke, Please STOP! Call for help. Follow-up with: Richard Olivera MD [Primary Care Provider] -
[2018-03-27 15:48] VITALS: BP 153/72
--- NOTE | 2018-04-05 11:23 | DISCHARGE SUMMARY ---
Physician: Mireille Hahn MD DATE OF ADMISSION: 03/24/2018 DATE OF DISCHARGE: 03/27/2018 HISTORY OF PRESENT ILLNESS: This is an 87-year-old, white female with a history of hypertension and remote diverticulitis 30 years ago, who presented with 5 days of crampy abdominal pain and watery diarrhea. She had no nausea or vomiting and was able to eat solid foods, but presented to the ER after "being sick of the crampy symptoms and diarrhea." She was admitted for diverticulitis. HOSPITAL COURSE AND DISCHARGE DIAGNOSES 1. Diverticulitis of the gastrointestinal tract. Patient had a CT of the abdomen and pelvis that showed a 1.2-cm mid hepatic lesion, likely a cyst, 2-mm solid nodule of the right middle lobe of the lung, cholecystectomy noted, and fatty stranding adjacent to the sigmoid colon and several diverticula, features of diverticulitis. Patient was placed on bowel rest with n.p.o. status, IV hydration, started on empiric IV Cipro and IV Flagyl. She had slow improvement in her crampiness and no further diarrhea while here. Her diet was slowly advanced to a soft diet. She was discharged with advice to eat easily digestible foods and to take several more days of p.o. antibiotics. 2. Hypertension. The patient was kept on her prehospital blood pressure medications while here. 3. Acute kidney injury. Her admission creatinine was 1.5, and with hydration, the discharge creatinine was 1.2. 4. Sundowning. Each night of her stay here, she treat the sundowning. The son admitted to me that the patient has been more confused with poor memory over the past several months to a year. Further workup of dementia is advised. LABORATORIES AND IMAGING: Reviewed and summarized above. ALLERGIES: PENICILLIN. MEDICATIONS AT DISCHARGE: 1. Aspirin 81 mg daily. 2. Lisinopril 20 mg daily. 3. Cipro 250 mg b.i.d. for 3 more days. 4. Flagyl 500 mg t.i.d. for 7 more days. 5. Florastor 250 b.i.d. for 7 more days if desired. CONDITION AT DISCHARGE: Stable. PHYSICAL EXAMINATION: VITAL SIGNS: Blood pressure 153/72, pulse of 79, in sinus rhythm, afebrile, room air saturation 99%. HEENT: Unremarkable. NECK: Without JVD or carotid bruits. CHEST: Clear. HEART: Sounds normal. ABDOMEN: Soft with positive bowel sounds. Nontender. No organomegaly. No guarding or rebound. EXTREMITIES: Without edema. NEUROLOGIC: Intact. FOLLOWUP: With her PCP in 5-7 days. CODE STATUS: FULL CODE. Time required to complete this entire discharge, chart review, review of plan with her son, dictation: 30 minutes. cc: Richard Olivera MD TD: 04/05/2018 11:06 MTDD
== END 2018-03-27 17:35 | disposition home or self-care (01) | DRG 392 ==
LOC: ED 09:08 → MS2 12:25
PROVIDERS: ADMIT Internal Medicine; ATTEND Internal Medicine
DX: K57.32 Diverticulitis of large intestine without perforation or abscess without bleeding (principal); E86.0 Dehydration; N17.9 Acute kidney failure, unspecified; F05 Delirium due to known physiological condition; I10 Essential (primary) hypertension; F03.90 Unspecified dementia, unspecified severity, without behavioral disturbance, psychotic disturbance, mood disturbance, and anxiety; Z79.82 Long term (current) use of aspirin; Z95.1 Presence of aortocoronary bypass graft
CPT/HCPCS: 36415; 74176; 80048; 80053; 81001; 81003; 83690; 85025; 87086; 96365; 96375; 99283; 99284

== ENCOUNTER 2019-07-08 07:52 | Outpatient (CLI) | payer MEDICARE, OTHER ==
[2019-07-08 12:06] LABS: BASOPHILS # (AUTO) 0.1 10^3/uL (0.0-0.1); BASOPHILS % (AUTO) 0.9 %; EOSINOPHILS # (AUTO) 0.1 10^3/uL (0.0-0.7); EOSINOPHILS % (AUTO) 2.1 %; HGB - HEMOGLOBIN 14.5 g/dL (12.0-16.0); LYMPHOCYTES # (AUTO) 1.9 10^3/uL (1.5-3.5); LYMPHOCYTES % (AUTO) 28.5 %; MEAN CORPUSCULAR HEMOGLOBIN 28.7 pg (27.0-31.0); MEAN CORPUSCULAR VOLUME 89.5 fL (81.0-99.0); MEAN PLATELET VOLUME 11.5 fL (7.9-10.8); MONOCYTES # (AUTO) 0.5 10^3/uL (0.0-1.0); MONOCYTES % (AUTO) 7.9 %; NEUTROPHILS # (AUTO) 3.9 10^3/uL (1.5-6.6); NEUTROPHILS % (AUTO) 60.1 %; PLT - PLATELET COUNT 201 10^3/uL (130-450); RED BLOOD COUNT 5.06 10^6/uL (4.20-5.40); RED CELL DISTRIBUTION WIDTH 13.7 % (12.0-15.0); WHITE BLOOD COUNT 6.6 x10^3/uL (4.8-10.8)
[2019-07-08 12:14] LABS: ALBUMIN/GLOBULIN RATIO 1.2 (1.0-2.2); ALKALINE PHOSPHATASE 70 IU/L (42-121); ALT ALANINE AMINOTRANSFERASE 27 IU/L (10-60); AST ASPARTATE AMINOTRANSFERASE 23 IU/L (10-42); BILIRUBIN,TOTAL 0.6 mg/dL (0.2-1.0); BUN - BLOOD UREA NITROGEN 26 mg/dL (6-20); CALCIUM 9.3 mg/dL (8.5-10.3); CARBON DIOXIDE - CO2 25 mmol/L (21-32); CHLORIDE 108 mmol/L (101-111); CHOL/HDL RATIO 6.6 (<4.4); CHOLESTEROL 249 mg/dL; CREATININE 1.4 mg/dL (0.4-1.0); GFR - MDRD 36 (>89); GLUCOSE 108 mg/dL (70-100); HDL CHOLESTEROL 38 mg/dL; LDL CHOLESTEROL,CALCULATED 131 mg/dL; LDL/HDL RATIO 3.4 (<4.4); SODIUM 141 mmol/L (135-145); TOTAL PROTEIN 7.3 g/dL (6.7-8.2); VLDL CHOLESTEROL 80 mg/dL
[2019-07-08 12:20] LABS: HB2 TOTAL 14.7 g/dL; HEMOGLOBIN A1C 0.59 g/dL; HEMOGLOBIN A1C % 5.8 % (4.6-6.2)
[2019-07-08 13:18] LABS: FREE T4 (FREE THYROXINE) 0.78 ng/dL (0.58-1.64)
== END 2019-07-08 23:59 | disposition home or self-care (01) ==
LOC: LAB.N 07:52
PROVIDERS: ATTEND Family Medicine
DX: N28.9 Disorder of kidney and ureter, unspecified (principal); I10 Essential (primary) hypertension; E78.2 Mixed hyperlipidemia
CPT/HCPCS: 36415; 80053; 80061; 83036; 83721; 84439; 84443; 85025

== ENCOUNTER 2019-07-27 08:00 | Outpatient (CLI) | payer MEDICARE, OTHER ==
[2019-07-27 19:28] LABS: THYROID STIMULATING HORMONE 5.89 uIU/mL (0.34-5.60)
[2019-07-27 19:29] LABS: FREE T4 (FREE THYROXINE) 0.74 ng/dL (0.58-1.64)
== END 2019-07-27 23:59 | disposition home or self-care (01) ==
LOC: LAB.N 08:00
PROVIDERS: ATTEND Family Medicine
DX: R94.6 Abnormal results of thyroid function studies (principal)
CPT/HCPCS: 36415; 81599; 84432; 84439; 84443; 84481; 86800

== ENCOUNTER 2020-03-15 07:00 | Outpatient (CLI) | payer MEDICARE, OTHER | END 2020-03-15 23:59 | disposition home or self-care (01) | LOC: LAB.R 07:00 | PROVIDERS: ATTEND Physician Assistant Medical | DX: N39.0 Urinary tract infection, site not specified (principal) | CPT/HCPCS: 81002; 87086 ==

== ENCOUNTER 2020-04-19 11:55 | Outpatient (CLI) | payer MEDICARE, OTHER ==
[2020-04-19 18:55] LABS: BILIRUBIN,URINE NEGATIVE (NEGATIVE); GLUCOSE, URINE (UA) NEGATIVE (NEGATIVE); KETONES,URINE (UA) NEGATIVE (NEGATIVE); LEUKOCYTE ESTERASE, URINE SMALL (NEGATIVE); NITRITE,URINE POSITIVE (NEGATIVE); OCCULT BLOOD,URINE TRACE-INTA (NEGATIVE); PH,URINE 5.5 PH (5.0-7.5); PROTEIN,URINE NEGATIVE (NEGATIVE); UROBILINOGEN,URINE 0.2 (NORMAL) E.U./dL (NORMAL)
[2020-04-19 18:59] LABS: CLARITY,URINE HAZY (CLEAR)
[2020-04-19 19:03] LABS: BASOPHILS # (AUTO) 0.1 10^3/uL (0.0-0.1); BASOPHILS % (AUTO) 0.7 %; EOSINOPHILS # (AUTO) 0.1 10^3/uL (0.0-0.7); EOSINOPHILS % (AUTO) 0.9 %; HGB - HEMOGLOBIN 13.9 g/dL (12.0-16.0); LYMPHOCYTES # (AUTO) 2.1 10^3/uL (1.5-3.5); LYMPHOCYTES % (AUTO) 24.2 %; MEAN CORPUSCULAR VOLUME 90.8 fL (81.0-99.0); MEAN PLATELET VOLUME 11.3 fL (7.9-10.8); MONOCYTES # (AUTO) 0.8 10^3/uL (0.0-1.0); MONOCYTES % (AUTO) 9.4 %; NEUTROPHILS # (AUTO) 5.7 10^3/uL (1.5-6.6); NEUTROPHILS % (AUTO) 64.3 %; PLT - PLATELET COUNT 239 10^3/uL (130-450); RED BLOOD COUNT 4.79 10^6/uL (4.20-5.40); RED CELL DISTRIBUTION WIDTH 13.2 % (12.0-15.0); WHITE BLOOD COUNT 8.9 x10^3/uL (4.8-10.8)
[2020-04-19 19:13] LABS: ALBUMIN 4.2 g/dL (3.2-5.5); ALBUMIN/GLOBULIN RATIO 1.2 (1.0-2.2); BILIRUBIN,TOTAL 0.2 mg/dL (0.2-1.0); CALCIUM 9.7 mg/dL (8.5-10.3); CREATININE 1.4 mg/dL (0.4-1.0); TOTAL PROTEIN 7.6 g/dL (6.7-8.2)
[2020-04-19 19:18] LABS: CREATININE,URINE 228.2 mg/dL; MICROALBUM/CREATININE RATIO,UR 5.3 ug/mg (<30.0); MICROALBUMIN,URINE 1.2 mg/dL (0-300.0)
[2020-04-19 19:20] LABS: BACTERIA,URINE Many /HPF (None Seen); RBC,URINE 0-5 /HPF (0-5); SQUAMOUS EPITHELIAL CELL,UR MANY Squamous (<= Few)
== END 2020-04-19 23:59 | disposition home or self-care (01) ==
LOC: LAB.WCP 11:55
PROVIDERS: ATTEND Internal Medicine
DX: N18.32 Chronic kidney disease, stage 3b (principal); N39.0 Urinary tract infection, site not specified
CPT/HCPCS: 36415; 80053; 81001; 82043; 82306; 82570; 85025; 87086

== ENCOUNTER 2020-09-28 07:00 | Outpatient (CLI) | payer MEDICARE, OTHER ==
[2020-09-28 18:11] LABS: BILIRUBIN,URINE NEGATIVE (NEGATIVE); GLUCOSE, URINE (UA) NEGATIVE (NEGATIVE); KETONES,URINE (UA) NEGATIVE (NEGATIVE); LEUKOCYTE ESTERASE, URINE TRACE (NEGATIVE); NITRITE,URINE POSITIVE (NEGATIVE); OCCULT BLOOD,URINE NEGATIVE (NEGATIVE); PROTEIN,URINE NEGATIVE (NEGATIVE); UROBILINOGEN,URINE 0.2 (NORMAL) E.U./dL (NORMAL)
[2020-09-28 18:31] LABS: BACTERIA,URINE Many /HPF (None Seen); CLARITY,URINE HAZY (CLEAR); RBC,URINE 0-5 /HPF (0-5); SQUAMOUS EPITHELIAL CELL,UR MOD Squamous (<= Few)
== END 2020-09-28 23:59 | disposition home or self-care (01) ==
LOC: LAB.R 07:00
PROVIDERS: ATTEND Internal Medicine
DX: N18.32 Chronic kidney disease, stage 3b (principal)
CPT/HCPCS: 81001; 87086

== ENCOUNTER 2020-09-28 08:00 | Outpatient (CLI) | payer MEDICARE, OTHER ==
[2020-09-28 12:14] LABS: BASOPHILS # (AUTO) 0.1 10^3/uL (0.0-0.1); BASOPHILS % (AUTO) 0.9 %; EOSINOPHILS # (AUTO) 0.2 10^3/uL (0.0-0.7); EOSINOPHILS % (AUTO) 1.8 %; HCT - HEMATOCRIT 43.7 % (37.0-47.0); HGB - HEMOGLOBIN 13.7 g/dL (12.0-16.0); LYMPHOCYTES # (AUTO) 3.2 10^3/uL (1.5-3.5); LYMPHOCYTES % (AUTO) 35.8 %; MEAN CORPUSCULAR HEMOGLOBIN 28.2 pg (27.0-31.0); MEAN CORPUSCULAR HGB CONC 31.4 g/dL (32.0-36.0); MEAN CORPUSCULAR VOLUME 90.1 fL (81.0-99.0); MEAN PLATELET VOLUME 11.9 fL (7.9-10.8); MONOCYTES # (AUTO) 0.6 10^3/uL (0.0-1.0); MONOCYTES % (AUTO) 6.7 %; NEUTROPHILS # (AUTO) 4.8 10^3/uL (1.5-6.6); NEUTROPHILS % (AUTO) 54.4 %; PLT - PLATELET COUNT 201 10^3/uL (130-450); RED BLOOD COUNT 4.85 10^6/uL (4.20-5.40); RED CELL DISTRIBUTION WIDTH 13.6 % (12.0-15.0); WHITE BLOOD COUNT 8.9 x10^3/uL (4.8-10.8)
[2020-09-28 12:38] LABS: ALBUMIN 3.8 g/dL (3.2-5.5); BILIRUBIN,TOTAL 0.4 mg/dL (0.2-1.0); CALCIUM 9.4 mg/dL (8.5-10.3); CREATININE 1.7 mg/dL (0.4-1.0); TOTAL PROTEIN 7.5 g/dL (6.7-8.2)
== END 2020-09-28 23:59 | disposition home or self-care (01) ==
LOC: LAB.WCP 08:00
PROVIDERS: ATTEND Internal Medicine
DX: N18.32 Chronic kidney disease, stage 3b (principal)
CPT/HCPCS: 36415; 80053; 85025

== ENCOUNTER 2021-04-13 10:42 | Outpatient (CLI) | payer MEDICARE, OTHER ==
[2021-04-13 14:08] LABS: BASOPHILS # (AUTO) 0.1 10^3/uL (0.0-0.1); EOSINOPHILS # (AUTO) 0.1 10^3/uL (0.0-0.7); HCT - HEMATOCRIT 46.7 % (37.0-47.0); HGB - HEMOGLOBIN 14.9 g/dL (12.0-16.0); LYMPHOCYTES # (AUTO) 2.9 10^3/uL (1.5-3.5); LYMPHOCYTES % (AUTO) 41.2 %; MEAN CORPUSCULAR HEMOGLOBIN 28.3 pg (27.0-31.0); MEAN CORPUSCULAR HGB CONC 31.9 g/dL (32.0-36.0); MEAN CORPUSCULAR VOLUME 88.6 fL (81.0-99.0); MEAN PLATELET VOLUME 11.7 fL (7.9-10.8); MONOCYTES # (AUTO) 0.5 10^3/uL (0.0-1.0); MONOCYTES % (AUTO) 6.8 %; NEUTROPHILS # (AUTO) 3.5 10^3/uL (1.5-6.6); NEUTROPHILS % (AUTO) 48.6 %; PLT - PLATELET COUNT 205 10^3/uL (130-450); RED BLOOD COUNT 5.27 10^6/uL (4.20-5.40); RED CELL DISTRIBUTION WIDTH 13.9 % (12.0-15.0); WHITE BLOOD COUNT 7.1 x10^3/uL (4.8-10.8)
[2021-04-13 14:26] LABS: ALBUMIN 4.2 g/dL (3.2-5.5); ALBUMIN/GLOBULIN RATIO 1.2 (1.0-2.2); BILIRUBIN,TOTAL 0.7 mg/dL (0.2-1.0); CALCIUM 9.6 mg/dL (8.5-10.3); CREATININE 1.6 mg/dL (0.4-1.0); POTASSIUM 4.3 mmol/L (3.5-5.0); TOTAL PROTEIN 7.7 g/dL (6.7-8.2); URIC ACID 6.8 mg/dL (2.6-7.2)
== END 2021-04-13 10:43 | disposition home or self-care (01) ==
LOC: LAB.N 10:42
PROVIDERS: ATTEND Internal Medicine
DX: N18.32 Chronic kidney disease, stage 3b (principal); R30.0 Dysuria
CPT/HCPCS: 36415; 80053; 81001; 82306; 83970; 84550; 85025; 87086

== ENCOUNTER 2021-04-15 08:00 | Outpatient (CLI) | payer MEDICARE, OTHER ==
[2021-04-18 11:04] LABS: CLARITY,URINE CLOUDY (CLEAR)
[2021-04-18 11:05] LABS: AMORPHOUS SEDIMENT,UR Marked /LPF; BACTERIA,URINE Rare /HPF (None Seen); BILIRUBIN,URINE NEGATIVE (NEGATIVE); GLUCOSE, URINE (UA) NEGATIVE (NEGATIVE); KETONES,URINE (UA) NEGATIVE (NEGATIVE); LEUKOCYTE ESTERASE, URINE NEGATIVE (NEGATIVE); NITRITE,URINE NEGATIVE (NEGATIVE); OCCULT BLOOD,URINE NEGATIVE (NEGATIVE); PROTEIN,URINE NEGATIVE (NEGATIVE); RBC,URINE None Seen /HPF (0-5); SQUAMOUS EPITHELIAL CELL,UR MOD Squamous (<= Few); UROBILINOGEN,URINE 0.2 (NORMAL) E.U./dL (NORMAL); WBC,URINE 0-3 /HPF (0-5)
== END 2021-04-15 08:01 | disposition home or self-care (01) ==
LOC: LAB.N 08:00
PROVIDERS: ATTEND Internal Medicine
DX: N18.32 Chronic kidney disease, stage 3b (principal)
CPT/HCPCS: 81001; 87086

== ENCOUNTER 2021-09-20 15:33 | Outpatient (CLI) | payer MEDICARE, OTHER | END 2021-09-20 15:34 | disposition critical access hospital (66) | LOC: EMS 15:33 | DX: S01.21XA Laceration without foreign body of nose, initial encounter (principal); S01.112A Laceration without foreign body of left eyelid and periocular area, initial encounter; S01.511A Laceration without foreign body of lip, initial encounter; W18.30XA Fall on same level, unspecified, initial encounter; R55 Syncope and collapse; R41.82 Altered mental status, unspecified; Y92.414 Local residential or business street as the place of occurrence of the external cause | CPT/HCPCS: A0425; A0429 ==

== ENCOUNTER 2021-09-20 15:57 | Emergency (ER) | payer MEDICARE, OTHER ==
--- NOTE | 2021-09-20 16:15 | ED Physician Documentation ---
PD HPI HEAD INJURY - Stated complaint Stated Complaint: HEAD INJURY/FALL - Chief complaint Chief Complaint: Trauma Hd/Nk - History obtained from History obtained from: Patient, EMS - History of Present Illness Mechanism of head injury: Other (unknown) Where head injury occurred: Street Timing - onset: Today Location of injury: Front Quality of pain: Pain Associated symptoms: LOC, AMS, Other (injury to face, right hip, left knee, left hand.) Symptoms improve with: Rest Symptoms worsen with: Palpation, Movement Similar symptoms before: Has not had sx before Recently seen: Not recently seen - Additional information Additional information: Previously well 89-year-old female was found facedown on the ground with blood on her face. She was on her way out to get the mail. She does not recall how the fall happened or what happened. She has not been ill recently. She has abrasions and lacerations to the face and on examination has pain to the right hip left knee left hand. She denies any pain to her neck. She does have alzheimers and has not had wandering previously. The son indicates that she was found about 1/4 of a mile from her home. There is no history about how the fall happened or what happened. The patient is not able to give adequate history. Review of Systems Constitutional: denies: Fever Eyes: denies: Decreased vision Ears: denies: Ear pain Nose: denies: Congestion Respiratory: denies: Cough GI: denies: Vomiting PD PAST MEDICAL HISTORY - Past Medical History Cardiovascular: None Respiratory: None Neuro: None Endocrine/Autoimmune: None GI: None : None HEENT: None Psych: None Musculoskeletal: None Derm: None - Past Surgical History Past Surgical History: Yes Cardiovascular: CABG HEENT: Tonsil/Adenoidectomy - Present Medications Home Medications: Ambulatory Orders Medication Instructions Recorded Confirmed lisinopriL [Lisinopril] 20 mg PO DAILY 03/24/18 03/24/18 Saccharomyces Boulardii [Florastor] 250 mg PO BID #8 capsule 03/27/18 amLODIPine [Norvasc] 5 mg ORAL DAILY 09/20/21 09/20/21 - Allergies Allergies/Adverse Reactions: Allergies Allergy/AdvReac Type Severity Reaction Status Date / Time Penicillins Allergy Unknown Verified 03/24/18 09:22 - Social History Does the pt smoke?: No Smoking Status: Never smoker Does the pt drink ETOH?: No Does the pt have substance abuse?: No PD ED PE NORMAL - Vitals Vital signs reviewed: Yes - General General: No acute distress, Well developed/nourished, Other (89 y/o female on a backboard with C-collar in place is removed from the backboard at 1610 with a 4 person log roll. ) - HEENT HEENT: PERRL, EOMI, Other (There is abrasion swelling and tenderness to the nasal bridge. abrasion to the left side of the forehead. Blood from the right nares. ) - Neck Neck: Supple, no meningeal sign, No bony TTP - Cardiac Cardiac: RRR, No murmur - Respiratory Respiratory: No respiratory distress, Clear bilaterally - Abdomen Abdomen: Normal bowel sounds, Soft, Non tender, Non distended, No organomegaly - Back Back: No CVA TTP, No spinal TTP - Derm Derm: Normal color, Warm and dry - Extremities Extremities: Other (There is point tenderness to the left trochanter and pain with flex/ext of the hip but not int/ext rotation.L knee with abrasion/tenderness/swelling. L hand with abrasion to #4&#5. ) - Neuro Neuro: credit rating checker 2-12 intact, No motor deficit, No sensory deficit, Normal speech Eye Opening: Spontaneous Motor: Obeys Commands Verbal: Confused GCS Score: 14 - Psych Psych: Normal mood, Normal affect Results - Vitals Vitals: Vital Signs - 24 hr 09/20/21 09/20/21 09/20/21 16:06 16:12 17:22 Temperature 36.0 C L 36.8 C Heart Rate 109 H 114 H 114 H Respiratory 12 24 18 Rate Blood Pressure 159/97 H 155/96 H 144/88 H O2 Saturation 96 98 100 09/20/21 09/20/21 17:30 19:21 Temperature Heart Rate 119 H 118 H Respiratory 21 12 Rate Blood Pressure 153/90 H 155/88 H O2 Saturation 100 99 Oxygen O2 Source Room air - Labs Labs: Laboratory Tests 09/20/21 09/20/21 09/20/21 16:03 16:03 16:03 WBC 12.8 H RBC 5.18 Hgb 14.3 Hct 42.7 MCV 82.4 MCH 27.6 MCHC 33.5 RDW 13.7 Plt Count 223 MPV 11.1 H Neut # (Auto) 6.8 H Lymph # (Auto) 4.8 H [place] # (Auto) 0.8 Eos # (Auto) 0.1 Baso # (Auto) 0.1 Absolute Nucleated RBC 0.00 Nucleated RBC % 0.0 PT 11.7 INR 1.1 Sodium 137 Potassium 3.8 Chloride 105 Carbon Dioxide 21 Anion Gap 11.0 BUN 30 H Creatinine 1.7 H Estimated GFR (MDRD) 28 L Glucose 151 H Calcium 9.5 Total Bilirubin 0.4 AST 22 ALT 22 Alkaline Phosphatase 75 Total Protein 7.1 Albumin 3.8 Globulin 3.3 Albumin/Globulin Ratio 1.2 Lipase 42 - Rads (name of study) CT cervical spine Radiology: Prelim report reviewed, EMP read indepedently, See rad report CT head Radiology: Prelim report reviewed (Impression: No acute intracranial abnormality. Bilateral nasal bone fractures, comminuted and displaced.), EMP read indepedently, See rad report CT maxillofacial Radiology: Prelim report reviewed (Impression: Comminuted and displaced fractures of the bilateral nasal bones and left anterior and left lateral maxillary sinus falcon.), EMP read indepedently, See rad report hip R Radiology: Prelim report reviewed (Impression: Diffuse osteopenia. No definite fracture. Normal alignment. Degenerative changes of the lower lumbar spine. If there is persistent clinical concern for hip fracture, consider further evaluation with CT or MRI.), EMP read indepedently, See rad report L knee Radiology: Prelim report reviewed (Impression: Left knee without fracture or dislocation), EMP read indepedently, See rad report L hand Radiology: Prelim report reviewed (Impression: Diffuse osteopenia. No definite fracture or dislocation. Moderate severe polyarticular degenerative changes of the left hand.), EMP read indepedently, See rad report chest Radiology: Prelim report reviewed (Impression: Chest without acute cardiopulmonary abnormalities.), EMP read indepedently, See rad report Procedures - Laceration (location) nasal bridge Length in cm: 2 Wound type: Curved, Flap, Into subcut fat Neurovascular status: Sensory intact, Motor intact, Vascular intact Anesthesia: Lidocaine 1% Wound preparation: Hibiclens, Irrigated copiously NS, Wound explored, To the base Skin layer closure: Nylon, Interrupted, Size #-0 - enter number (5-0), Sutures - enter # (4) Other: Patient tolerated well, No complications, Neurovascular intact, Dressing applied, Tetanus UTD upper lip Length in cm: 2 Wound type: Linear, Irregular Neurovascular status: Sensory intact, Motor intact, Vascular intact Anesthesia: Lidocaine 1% Wound preparation: Hibiclens, Irrigated copiously NS, Wound explored, To the base Skin layer closure: Nylon, Interrupted, Size #-0 - enter number (6-0) Other: Patient tolerated well, No complications, Neurovascular intact, Dressing applied, Tetanus UTD - IVC sono (time) 1805 Bedside IVC sono: IVC measures (cm) (0.8), Dehydration (est 2+ liter deficit) PD MEDICAL DECISION MAKING - ED course Complexity details: reviewed old records, reviewed results, re-evaluated patie nt, considered differential, d/w patient, d/w family ED course: 89 y/o female wandering today has had a fall of unknown mechanism that resulted in facial fractures, denture fracture abrasions and contusions. She is dehydrated and she is given saline. Her facial lacerations are fixed and she is given IV rocephin as prophylaxis. She is given IV hydration for significant de hydration. We do not have an explanation of the mechanism of the fall. At shift change a urine and a read on a CT are pending. She did pass the road test and I am turning the care over to Dr. Vila for disposition. We did find a suspicious mass in the chest and there are recommendations about follow up. I have consulted with the patients son with the results. Chest CT:Impression: 1. Irregular 2.3 cm medial right upper lobe spiculated pulmonary nodule which is suspicious for malignancy. However, an infectious inflammatory process cannot be excluded. There are a few peripheral 4 mm nodule s in the inferior aspect of the right middle lobe and anterior right lung base, otherwise, no other suspicious lesions identified. Consider short interval follow-up chest CT in [address] versus biopsy. No acute airspace disease s/p cholecystectomy incompletely characterized right hepatic lobe hypodensity likely representing a cyst or hemangioma. Colonic diverticulosis without acute diverticulitis. Small hiatal hernia. Departure - Departure Clinical Impression: Nasal bone fracture Qualifiers: Encounter type: initial encounter Fracture type: closed Qualified Code(s): S02.2XXA - Fracture of nasal bones, initial encounter for closed fracture Maxillary sinus fracture Qualifiers: Encounter type: initial encounter Fracture type: closed Qualified Code(s): S02.401A - Maxillary fracture, unspecified side, initial encounter for closed fracture Contusion, hip Qualifiers: Encounter type: initial encounter Laterality: right Qualified Code(s): S70.01XA - Contusion of right hip, initial encounter Instructions: ED Head Injury Closed, ED Contusion Hip, ED Laceration Facial Sutr Tape Follow-Up: Luciano Florez DDS [Provider Admit Priv/Credential] -
[2021-09-20 16:18] LABS: BASOPHILS # (AUTO) 0.1 10^3/uL (0.0-0.1); BASOPHILS % (AUTO) 0.5 %; EOSINOPHILS # (AUTO) 0.1 10^3/uL (0.0-0.7); HCT - HEMATOCRIT 42.7 % (37.0-47.0); HGB - HEMOGLOBIN 14.3 g/dL (12.0-16.0); LYMPHOCYTES # (AUTO) 4.8 10^3/uL (1.5-3.5); LYMPHOCYTES % (AUTO) 37.8 %; MEAN CORPUSCULAR HEMOGLOBIN 27.6 pg (27.0-31.0); MEAN CORPUSCULAR HGB CONC 33.5 g/dL (32.0-36.0); MEAN CORPUSCULAR VOLUME 82.4 fL (81.0-99.0); MEAN PLATELET VOLUME 11.1 fL (7.9-10.8); MONOCYTES # (AUTO) 0.8 10^3/uL (0.0-1.0); MONOCYTES % (AUTO) 6.5 %; NEUTROPHILS # (AUTO) 6.8 10^3/uL (1.5-6.6); NEUTROPHILS % (AUTO) 53.6 %; PLT - PLATELET COUNT 223 10^3/uL (130-450); RED BLOOD COUNT 5.18 10^6/uL (4.20-5.40); RED CELL DISTRIBUTION WIDTH 13.7 % (12.0-15.0); WHITE BLOOD COUNT 12.8 x10^3/uL (4.8-10.8)
[2021-09-20 16:25] LABS: ALBUMIN 3.8 g/dL (3.2-5.5); ALBUMIN/GLOBULIN RATIO 1.2 (1.0-2.2); BILIRUBIN,TOTAL 0.4 mg/dL (0.2-1.0); CALCIUM 9.5 mg/dL (8.5-10.3); CREATININE 1.7 mg/dL (0.4-1.0); POTASSIUM 3.8 mmol/L (3.5-5.0); TOTAL PROTEIN 7.1 g/dL (6.7-8.2)
[2021-09-20 16:27] LABS: INR 1.1 (0.8-1.2); PT - PROTHROMBIN TIME 11.7 secs (9.9-12.6)
--- NOTE | 2021-09-20 16:48 | CT Report ---
PROCEDURE: HEAD WO INDICATIONS: concussion with LOC TECHNIQUE: Noncontrast 4.5 mm thick angled axial sections acquired from the foramen magnum to the vertex. For r adiation dose reduction, the following was used: automated exposure control, adjustment of mA and/or kV according to patient size. COMPARISON: None. FINDINGS: Image quality: Excellent. CSF spaces: Basal cisterns are patent. No extra-axial fluid collections. Ventricles are normal in size and shape. Brain: Severe global cerebral volume loss and moderate to severe chronic microvascular ischemic whitney ges. No acute intracranial finding. No midline shift. No intracranial masses or hemorrhage. [place]-wh ite matter interface is normal. Skull and face: Calvarium and visualized facial bones are intact, without suspicious lesions. Bilat eral comminuted nasal bone fractures. Sinuses: Visualized sinuses and mastoids are clear. IMPRESSION: No acute intracranial abnormality. Bilateral nasal bone fractures, comminuted and displaced. Reviewed by: Buddy Freire MD on 09/20/2021 4:47 PM PST Approved by: Buddy Freire MD on 09/20/2021 4:47 PM PST Station ID: [id number]
--- NOTE | 2021-09-20 16:49 | CT Report ---
PROCEDURE: CERVICAL SPINE WO INDICATIONS: head injury neck pain TECHNIQUE: Noncontrast 3 mm thick sections acquired from the skull base to the T4 level. Sagittal and coronal r eformats were then constructed. For radiation dose reduction, the following was used: automated exp osure control, adjustment of mA and/or kV according to patient size. COMPARISON: None. FINDINGS: Spiculated mass in the right upper lobe.. CT chest with IV contrast recommended No listhesis, dislocation, or subluxation. Facet joints are congruent. Intervertebral disc spaces are congruent. Extensive degenerative changes. Normal configuration of the craniocervical junction. No f racture demonstrated. Regional prevertebral and paraspinous soft tissues are within normal limits. IMPRESSION: No CT evidence of acute traumatic cervical spine injury. Spiculated right upper lobe mass highly suspicious for malignancy. CT chest with IV contrast recommen ded, unless prior studies can document stability. Reviewed by: Buddy Freire MD on 09/20/2021 4:48 PM PST Approved by: Buddy Freire MD on 09/20/2021 4:48 PM PST Station ID: [id number]
--- NOTE | 2021-09-20 17:02 | CT Report ---
PROCEDURE: MAXILLOFACIAL WO INDICATIONS: Facial injuries status post trauma/fall TECHNIQUE: Noncontrast 1.5 mm thick axial images acquired from the mandible through the frontal sinuses, with co rashad and sagittal reformatting. For radiation dose reduction, the following was used: automated ex posure control, adjustment of mA and/or kV according to patient size. COMPARISON: None. FINDINGS: Image quality: Excellent. Bones and teeth: Comminuted bilateral nasal bone fractures. Comminuted fracture of the anterior left maxillary sinus wall and of the lateral left maxillary sinus wall. Small left maxillary sinus fluid l evel likely related. Sinuses: Fluid levels in the Soft tissues: No edema, masses, or fluid collections. No enlarged lymph nodes. No soft tissue lace rations or debris. Vascular: Visualized vascular structures appear normal in the absence of contrast. Bony vascular fo ramina and canals are intact. IMPRESSION: Comminuted and displaced fractures of the bilateral nasal bones and left anterior and left lateral ma xillary sinus falcon. Reviewed by: Buddy Freire MD on 09/20/2021 5:01 PM PST Approved by: Buddy Freire MD on 09/20/2021 5:01 PM PST Station ID: [id number]
[2021-09-20] MEDS ORDERED: cefTRIAXone 1 GM in SODIUM CHLORIDE 0.9% MINIBAG 100 ML IV STA (17:34)
[2021-09-20] MEDS ORDERED: cefTRIAXone 1 GM VIAL ONE (17:50)
[2021-09-20] MEDS ORDERED: SODIUM CHLORIDE 0.9% 1,000 ML IV STA (18:11)
[2021-09-20] MEDS ORDERED: lidocaine 1% 20 ML MDV SUBQ ONE (18:19)
--- NOTE | 2021-09-20 18:22 | XRAY Report ---
PROCEDURE: Chest 1 View X-Ray INDICATIONS: chest pain TECHNIQUE: One view of the chest was acquired. COMPARISON: 04/25/2015 FINDINGS: Surgical changes and devices: Multiple median sternotomy wires are present. Postsurgical changes from prior CABG. Lungs and pleura: No pleural effusions or pneumothorax. Lungs are clear. Mediastinum: Mediastinal contours appear normal. Heart size is normal. Bones and chest wall: No suspicious bony lesions. Overlying soft tissues appear unremarkable. IMPRESSION: Chest without acute cardiopulmonary abnormalities. Reviewed by: Nader Kaur MD on 09/20/2021 6:20 PM PST Approved by: Nader Kaur MD on 09/20/2021 6:20 PM [facility] Station ID: [id number]
--- NOTE | 2021-09-20 18:24 | XRAY Report ---
PROCEDURE: Hand 3 View LT INDICATIONS: fall contusion 4 5 TECHNIQUE: 4 views of the hand(s) acquired. COMPARISON: None FINDINGS: Bones: Diffuse osteopenia. No definite fractures or dislocations. No suspicious bony lesions. Sever e degenerative changes of the left first carpometacarpal joint. Moderate-severe degenerative changes of the proximal interphalangeal joint of the left third, fourth, and fifth fingers. Moderate-severe d egenerative changes of the distal interphalangeal joints of the left second through fifth fingers and left thumb interphalangeal joint. Soft tissues: No suspicious soft tissue calcifications. Chondral calcifications of the distal radial carpal joint. IMPRESSION: Diffuse osteopenia. No definite fracture or dislocation. Moderate severe polyarticular degenerative c hanges of the left hand. If there is persistent clinical concern for a radiographically occult fracture, recommend immobilizat ion and repeat imaging in 10 to 14 days. Reviewed by: Nader Kaur MD on 09/20/2021 6:23 PM PST Approved by: Nader Kaur MD on 09/20/2021 6:23 PM PST Station ID: [id number]
--- NOTE | 2021-09-20 18:26 | XRAY Report ---
PROCEDURE: Hip w/Pelvis 2-3V RT INDICATIONS: fall trochanter pain TECHNIQUE: AP pelvis with lateral view(s) of the hip(s). COMPARISON: None. FINDINGS: Bones: Diffuse osteopenia. No definite fractures or dislocations. Pelvic ring appears intact. No s uspicious bony lesions. Degenerative changes of the lower lumbar spine and bilateral hips. Soft tissues: The visualized bowel gas pattern is normal. No suspicious soft tissue calcifications. IMPRESSION: Diffuse osteopenia. No definite fracture. Normal alignment. Degenerative changes of the lower lumbar spine. There is persistent clinical concern for hip fracture, consider further evaluation with CT or MRI. Reviewed by: Nader Kaur MD on 09/20/2021 6:24 PM PST Approved by: Nader Kaur MD on 09/20/2021 6:24 PM PST Station ID: [id number]
--- NOTE | 2021-09-20 18:27 | XRAY Report ---
PROCEDURE: Knee 4 View LT INDICATIONS: fall contusion swelling TECHNIQUE: 4 views of the left knee(s) were acquired. COMPARISON: None. FINDINGS: Bones: Mild diffuse osteopenia. No acute fractures or dislocations. No suspicious bony lesions. Mil d tricompartmental degenerative changes of the left knee. Soft tissues: No joint effusion. No suspicious soft tissue calcifications. Chondrocalcinosis noted of the left knee joint. IMPRESSION: Left knee without acute fracture or dislocation. If there is persistent clinical concern for a radiographically occult fracture, recommend immobilizat ion and repeat imaging in 10 to 14 days. Reviewed by: Nader Kaur MD on 09/20/2021 6:26 PM PST Approved by: Nader Kaur MD on 09/20/2021 6:26 PM PST Station ID: [id number]
[2021-09-20] MEDS ORDERED: LIDOCAINE 1% 10 ML MDV SUBQ ONE (18:49)
[2021-09-20] MEDS ORDERED: IOVERSOL 320 100 ML VIAL IVP ONE ×2 (18:50→19:03)
[2021-09-20] MEDS ORDERED: LIDOCAINE-MPF 1% 5 ML VIAL ONE (19:02)
--- NOTE | 2021-09-20 19:31 | CT Report ---
PROCEDURE: CHEST W INDICATIONS: RUL mass CONTRAST: IV CONTRAST: Optiray 320 ml: 100 PO CONTRAST: *NO PO CONTRAST TECHNIQUE: After the administration of intravenous contrast, 1 mm axial images were acquired from the pulmonary apices through the posterior costophrenic angles. Axial 5 mm soft tissue kernel reconstructions were performed as well as 8 mm axial MIP and coronal and sagittal 5 mm reformations. For radiation dose reduction, the following was used: automated exposure control, adjustment of mA and/or kV according to patient size. COMPARISON: Chest radiograph from earlier same day and 04/25/2015. FINDINGS: Image quality: Excellent. Lungs and pleura: There is a 2.3 x 2.1 cm medial right upper lobe spiculated nodule. There are a few scattered subpleural pulmonary nodules measuring approximately 4 mm in size. These are seen in the p eripheral, inferior aspect of the right middle lobe and anterior right lung base. Examples are seen o n image 41/series 3, and image 38/series 3. No acute air space opacities. Bibasilar atelectasis. No pleural effusions or pneumothorax. Central and peripheral airways are patent and normal in caliber. Mediastinum: Heart size is normal. No pericardial effusion. Atherosclerotic calcifications of the c oronary arteries and thoracic aorta are noted. No mediastinal or hilar adenopathy by size criteria. Thoracic aorta and central pulmonary arteries are normal in size. Esophagus is normal in caliber. N o hiatal hernia. Bones and chest wall: No suspicious bony lesions. No vertebral body compression fractures. No axil carlos or supraclavicular adenopathy by size criteria. The thyroid is normal in size and there are no incidental findings.. Multiple median sternotomy wires are in place. No substernal fluid collections. Abdomen: Status post cholecystectomy. Prominent common bile duct likely physiologic dilatation postc holecystectomy. Incompletely characterized right hepatic lobe hypodensity likely representing a cyst or hemangioma. Colonic diverticulosis without acute diverticulitis. Small hiatal hernia. Remainder of the visualized upper abdominal solid organs appear normal. Upper abdominal bowel loops are normal i n caliber. IMPRESSION: 1. Irregular 2.3 cm medial right upper lobe spiculated pulmonary nodule which is suspicious for malig jose. However, an infectious/inflammatory process not excluded. There are a few peripheral 4 mm nodu les in the inferior aspect of the right middle lobe and anterior right lung base. Otherwise, no other suspicious lesions identified. Consider short interval follow-up chest CT in [address] versus biopsy. 2. No acute airspace disease. 3. Status post cholecystectomy. 4. Incompletely characterized right hepatic lobe hypodensity likely representing a cyst or hemangioma . 5. Colonic diverticulosis without acute diverticulitis. 6. Small hiatal hernia. CLINICAL RECOMMENDATION STATEMENTS: In patients <35 years with an ITN detected on CT, MRI, or extrathyroidal ultrasound, the Committee re commends further evaluation with dedicated thyroid ultrasound if the nodule is "e1 cm and has no susp icious imaging features, and if the patient has normal life expectancy. In patients "e35 years with an ITN detected on CT, MRI, or extrathyroidal ultrasound, the Committee r ecommends further evaluation with dedicated thyroid ultrasound if the nodule is "e1.5 cm and has no s uspicious imaging features, and if the patient has normal life expectancy. (ACR, 2014) Reviewed by: Nader Kaur MD on 09/20/2021 7:30 PM PST Approved by: Nader Kaur MD on 09/20/2021 7:30 PM PST Station ID: [id number]
[2021-09-20] MEDS ORDERED: BACITRACIN ZINC OINT 1 PACKET TOP STA (20:08)
[2021-09-20] MEDS ORDERED: BACITRACIN ZINC OINT 1 PACKET TOP ONE (20:17)
[2021-09-20 22:36] VITALS: BP 138/80
--- NOTE | 2021-10-08 22:40 | ED Physician Documentation ---
ED Addendum - Addendum Addendum: 10/08/21 22:34 Received sign out from Dr. Moser at end of shift, pending results of CT chest and UA. CT chest findings include "irregular 2.3 cm medial right upper lobe spiculated pulonary nodule which is suspicious for malignancy. However, an infectious/inflammatory process not excluded" (per radiology reading). Patient urinated but unfortunately not into sample cup. Family arrived and is at bedside when I reviewed results of the CT chest. I explained the concerning finding of a mass, and the need for follow-up to determine need/timing of further testing . As for the urinalysis, I recommended rx keflex, as this would be a good choice to cover the lip laceration (wound pro phylaxis) as well as possible UTI (and adequate coverage should the finding on CT represent infectious process, though unlikely etiology based on description). She had already been given rocephin in ED. Rx for keflex transmitted to her pharmacy of choice. Despite significant facial swelling and echymosis, she was not in any apparent distress during my discussion with her and her bedside family member and they were comfortable with d/c home.
== END 2021-09-20 22:15 | disposition home or self-care (01) ==
LOC: EDUNIT# → EDBD → ED 15:57
DX: S02.401A Maxillary fracture, unspecified side, initial encounter for closed fracture (principal); S02.2XXA Fracture of nasal bones, initial encounter for closed fracture; S70.01XA Contusion of right hip, initial encounter; W19.XXXA Unspecified fall, initial encounter; Y93.01 Activity, walking, marching and hiking; E86.0 Dehydration; R91.8 Other nonspecific abnormal finding of lung field
CPT/HCPCS: 12013; 36415; 70450; 70486; 71045; 71260; 72125; 73130; 73502; 73564; 80053; 83690; 85025; 85610; 96365; 99282; 99284; A9270; Q9967; 81001; 81003; 87086

== ENCOUNTER 2021-09-26 16:45 | Outpatient (CLI) | payer MEDICARE, OTHER ==
[2021-09-26 21:00] LABS: BASOPHILS # (AUTO) 0.1 10^3/uL (0.0-0.1); BASOPHILS % (AUTO) 0.8 %; EOSINOPHILS # (AUTO) 0.1 10^3/uL (0.0-0.7); HCT - HEMATOCRIT 40.6 % (37.0-47.0); HGB - HEMOGLOBIN 13.2 g/dL (12.0-16.0); LYMPHOCYTES # (AUTO) 2.3 10^3/uL (1.5-3.5); MEAN CORPUSCULAR HEMOGLOBIN 27.8 pg (27.0-31.0); MEAN CORPUSCULAR HGB CONC 32.5 g/dL (32.0-36.0); MEAN CORPUSCULAR VOLUME 85.7 fL (81.0-99.0); MEAN PLATELET VOLUME 11.7 fL (7.9-10.8); MONOCYTES # (AUTO) 1.1 10^3/uL (0.0-1.0); MONOCYTES % (AUTO) 10.9 %; NEUTROPHILS % (AUTO) 62.7 %; PLT - PLATELET COUNT 257 10^3/uL (130-450); RED BLOOD COUNT 4.74 10^6/uL (4.20-5.40); RED CELL DISTRIBUTION WIDTH 14.2 % (12.0-15.0); WHITE BLOOD COUNT 9.6 x10^3/uL (4.8-10.8)
[2021-09-26 21:12] LABS: ALBUMIN 3.7 g/dL (3.2-5.5); CALCIUM 9.3 mg/dL (8.5-10.3); CREATININE 1.6 mg/dL (0.4-1.0); PHOSPHORUS 4.1 mg/dL (2.5-4.6); POTASSIUM 4.9 mmol/L (3.5-5.0)
== END 2021-09-26 16:46 | disposition home or self-care (01) ==
LOC: LAB.N 16:45
PROVIDERS: ATTEND Internal Medicine Nephrology
DX: N18.32 Chronic kidney disease, stage 3b (principal); E55.9 Vitamin D deficiency, unspecified
CPT/HCPCS: 36415; 80069; 82306; 83970; 85025